=== PATIENT | male | born 1955 | race Caucasian/White ===

== ENCOUNTER → 2016-07-31 | Outpatient (CLI) | payer OTHER ==
[~2016-07-31] MED LIST: ALBUAER2 INH; ALL180 PO; FLUO20CA35 PO; FLUT50SP14 NAE; LOSA50TA6 PO; METF-384 PO; MULTTAB58 PO; VICODIN PO
--- NOTE | 2016-07-31 12:41 | DIAGNOSTIC IMAGING REPORT ---
BILIARY ULTRASOUND CLINICAL HISTORY: Abnormal liver enzymes COMPARISON STUDY: CT scan performed September 2013 FINDINGS: The liver is of increased echogenicity, consistent with hepatic steatosis. There is focal fatty sparing adjacent to the gallbladder. There is no ductal dilatation. The common bile duct measures 6 mm. The pancreas appears normal as visualized. There is no right-sided hydronephrosis. No gallstones are visualized. The study was somewhat difficult from a technical standpoint due to the patient's body habitus IMPRESSION: 1. Increased hepatic echogenicity, consistent with hepatic steatosis. Mild hepatomegaly ( 23 cm) 2. Ultrasonographically normal gallbladder. No evidence of ductal dilatation. Electronically signed by: Chris Bailey M.D. 07/31/2016 12:39 PM Dictated Date/Time: 07/31/2016 12:37 PM
[2016-07-31 14:24] LABS: BLOOD UREA NITROGEN 20 mg/dl (7-18); BUN/CREATININE RATIO 19.8 (10-20)
[2016-07-31 14:28] LABS: PROSTATE SPECIFIC ANTIGEN 0.766 ng/ml (0.000-4.000)
[2016-07-31 14:30] LABS: HEPATITIS B AB NEG
== END | disposition home or self-care (01) ==
LOC: C.ULTR 11:34
PROVIDERS: ATTEND Internal Medicine
DX: R74.8 Abnormal levels of other serum enzymes (principal); R31.29 Other microscopic hematuria

== ENCOUNTER → 2016-10-28 | Outpatient (CLI) | payer OTHER ==
[2016-10-28 13:46] LABS: ALT/SGPT 63 U/L (12-78); BLOOD UREA NITROGEN 21 mg/dl (7-18); BUN/CREATININE RATIO 21.3 (10-20); CARBON DIOXIDE 26 mmol/L (21-32); CHLORIDE 106 mmol/L (98-107); GLUCOSE 101 mg/dl (70-99); POTASSIUM 4.2 mmol/L (3.5-5.1); SODIUM 139 mmol/L (136-145)
[2016-10-28 13:49] LABS: ALB/GLOB RATIO 1.1 (0.9-2); ALKALINE PHOSPHATASE 65 U/L (45-117); AST/SGOT 30 U/L (15-37)
[2016-10-28 14:01] LABS: CALCIUM 9.7 mg/dl (8.5-10.1)
== END | disposition home or self-care (01) ==
LOC: C.LAB 11:28
PROVIDERS: ATTEND Physician Assistant
DX: R74.8 Abnormal levels of other serum enzymes (principal)